=== PATIENT | male | born 1985 | race Caucasian/White ===

== ENCOUNTER 2020-09-16 09:39 | Outpatient (CLI) | payer OTHER, SELFPAY ==
--- NOTE | 2020-09-16 10:04 | EST_ITS ---
Patient Info Name: Parish Matthews Age: 35 years : 1985 Gender: Male Ht: 66 in Wt: 203 lbs BSA: 2.10 m2 HR: 96 bpm BP: 132 / 89 mmHg Heart Rhythm: Sinus Rhythm Exam Date: 09/16/2020 10:24 AM Exam Location: [facility] Patient Status: Outpatient Admit Date: 09/16/2020 Staff Ordering Physician: Mari De Leon Snack Bar Cook: Yumiko Nowak RDCS Attending Provider: Mari De Leon Exercise Technologist: Yessica North CT Exercise Physician: Manuel Overton DO Exam Type: CA stress echo Study Info Indications R60.0 - Localized edema Treadmill exercise stress echocardiogram is performed. Summary 1. 1. Negative Marcello exercise stress test for ischemic ST changes by ECG criteria. 2. 2. Good functional capacity, achieving 12 METs of workload. 3. 3. Appropriate HR response to exercise. 4. 4. Appropriate HR recovery at 1 minute post exercise. 5. 5. Negative stress echocardiogram for ischemia by wall motion analysis. 6. 6. Patient informed of the above results. Stress Echo Findings Left Ventricle Appropriate increase in LV endocardial thickening with systole. Appropriate augmentation of contractility with systole. No wall motion abnormality. Left Ventricle Normal LV systolic function, no wall motion abnormality. Protocol: Marcello Stress ECG Details Stage: REST Duration (min): 1 min : 1 sec Speed (mph): 0.0 Grade (%): 0 HR (bpm): 89 SBP (mmHg): 132 DBP (mmHg): 89 METS: --- Stage: REST Duration (min): 17 min : 54 sec Speed (mph): 0.0 Grade (%): 0 HR (bpm): 93 SBP (mmHg): 132 DBP (mmHg): 89 METS: --- Stage: STAGE 1 Duration (min): 1 min : 0 sec Speed (mph): 1.7 Grade (%): 10 HR (bpm): 121 SBP (mmHg): 132 DBP (mmHg): 89 METS: --- Stage: STAGE 1 Duration (min): 2 min : 0 sec Speed (mph): 1.7 Grade (%): 10 HR (bpm): 123 SBP (mmHg): 132 DBP (mmHg): 89 METS: --- Stage: STAGE 1 Duration (min): 3 min : 0 sec Speed (mph): 1.7 Grade (%): 10 HR (bpm): 128 SBP (mmHg): 134 DBP (mmHg): 91 METS: --- Stage: STAGE 2 Duration (min): 1 min : 0 sec Speed (mph): 2.5 Grade (%): 12 HR (bpm): 133 SBP (mmHg): 134 DBP (mmHg): 91 METS: --- Stage: STAGE 2 Duration (min): 2 min : 0 sec Speed (mph): 2.5 Grade (%): 12 HR (bpm): 140 SBP (mmHg): 150 DBP (mmHg): 76 METS: --- Stage: STAGE 2 Duration (min): 3 min : 0 sec Speed (mph): 2.5 Grade (%): 12 HR (bpm): 141 SBP (mmHg): 150 DBP (mmHg): 76 METS: --- Stage: STAGE 3 Duration (min): 1 min : 0 sec Speed (mph): 3.4 Grade (%): 14 HR (bpm): 148 SBP (mmHg): 186 DBP (mmHg): 73 METS: --- Stage: STAGE 3 Duration (min): 2 min : 0 sec Speed (mph): 3.4 Grade (%): 14 HR (bpm): 155 SBP (mmHg): 186 DBP (mmHg): 73 METS: --- Stage: STAGE 3 Duration (min): 3 min : 0 sec Speed (mp
[2020-09-16 10:29] LABS: Alanine Aminotransferase 45 U/L (4-50); Albumin Level 4.8 g/dL (3.5-5.1); Alkaline Phosphatase 75 U/L (38-126); Anion Gap 7 mmol/L (8-16); Aspartate Amino Transferase 37 U/L (17-59); Bilirubin,Total 0.6 mg/dL (0.2-1.3); Blood Urea Nitrogen 16 mg/dL (9-20); Calcium 8.9 mg/dL (8.4-10.2); Carbon Dioxide 29 mmol/L (22-30); Chloride 102 mmol/L (98-107); Cholesterol 203 mg/dL (0-200); Estimated Glomerular Filt Rate > 60; Glucose 128 mg/dL (75-110); HDL Direct 35 mg/dL; Potassium 4.2 mmol/L (3.4-5.0); Sodium 138 mmol/L (137-145); Triglycerides 110 mg/dL (<150)
[2020-09-16 10:36] LABS: Hemoglobin A1C 5.3 % (<5.7)
[2020-09-16 10:39] LABS: LDL Cholesterol Direct 144 mg/dL
[2020-09-20 07:07] LABS: Testosterone Free 50.5 pg/mL (35.0-155.0); Testosterone Total 312 ng/dL (250-1100)
== END 2020-09-16 09:40 | disposition home or self-care (01) ==
PROVIDERS: PCP Internal Medicine; Visit Provider Nurse Practitioner
DX: R60.0 Localized edema (principal); Z13.6 Encounter for screening for cardiovascular disorders; Z13.1 Encounter for screening for diabetes mellitus; Z13.220 Encounter for screening for lipoid disorders; G47.00 Insomnia, unspecified; N52.9 Male erectile dysfunction, unspecified
CPT/HCPCS: 36415; 80053; 80061; 83036; 84402; 84403; 84443; 93351

== ENCOUNTER 2021-06-01 22:40 | Emergency (ER) | payer BC, SELFPAY ==
[2021-06-01 23:18] VITALS: BP 151/102; PULSE 95; RESP 16; TEMP 36.9; O2SAT 97
== END 2021-06-02 03:30 | disposition left against medical advice (07) ==
PROVIDERS: PCP Internal Medicine
DX: Z53.21 Procedure and treatment not carried out due to patient leaving prior to being seen by health care provider (principal)
CPT/HCPCS: 99199

== ENCOUNTER 2021-11-04 15:08 | Outpatient (CLI) | payer BC, SELFPAY ==
--- NOTE | ~2021-11-04 | US_ITS ---
EXAMINATION: US venous doppler [facility] DATE: 11/04/2021 15:44 INDICATION: Localized lower limb edema. TECHNIQUE: Grayscale ultrasound images without and with compression and Doppler ultrasound images of the bilateral lower extremity veins were obtained. COMPARISON: None. FINDINGS: The visualized portions of right common femoral vein, profunda (deep) femoral vein, femoral vein, pop liteal vein, peroneal veins, posterior tibial veins, and greater saphenous vein outflow are patent. The visualized portions of left common femoral vein, profunda femoral vein, femoral vein, popliteal v ein, peroneal veins, posterior tibial veins, and greater saphenous vein outflow are patent. IMPRESSION: 1. No deep venous thrombosis. Reviewed, dictated and finalized at location A.
== END 2021-11-04 15:09 | disposition home or self-care (01) ==
PROVIDERS: PCP Internal Medicine; Visit Provider Internal Medicine
DX: R60.0 Localized edema (principal)
CPT/HCPCS: 93970

== ENCOUNTER 2022-03-16 18:54 | Emergency (ER) | payer BC, SELFPAY ==
--- NOTE | ~2022-03-16 | CT_ITS ---
EXAMINATION: CT cervical spine wo con DATE: 03/16/2022 20:46 INDICATION: head injury TECHNIQUE: Computed tomography (CT) of the cervical spine was performed without intravenous contrast. Automated exposure control and iterative reconstruction technique were employed. The dose-length pro duct was 469.41 mGy-cm. COMPARISON: None FINDINGS: Vertebral Body Alignment: Intact. Craniocervical and atlantoaxial alignment: Mild degenerative change. Alignment intact. Osseous structures/fracture: No evidence of a lytic or blastic process in the visualized spine. No e vidence of acute fracture. Cervical soft tissues: The paraspinal soft tissues planes are maintained. Bilateral mastoid effusions . Degenerative changes: Degenerative changes, without severe neural foraminal or central canal narrowin g. IMPRESSION: No acute fracture or traumatic malalignment in the cervical spine. Reviewed, dictated and finalized at location K.
--- NOTE | ~2022-03-16 | CT_ITS ---
EXAMINATION: CT brain & sinus wo con DATE: 03/16/2022 20:45 INDICATION: head injury . TECHNIQUE: Computed tomography (CT) of the brain and sinuses was performed without intravenous contra st. The mA was adjusted according to patient size. Iterative reconstruction technique was employed. T he dose-length product was 1891.67 mGy-cm. COMPARISON: None FINDINGS: No acute intracranial hemorrhage or extra-axial fluid collection. No hydrocephalus, mass, or herniation. No acute ischemic infarct. Unremarkable dural venous sinus attenuation. No acute osseous abnormality. SINUS: Multiple air-fluid levels in the bilateral mastoid air cells, the remaining aerated spaces are clear. Patent bilateral lower OMUs. Mild leftward deviation of the osseous septum, with a large leftward di rected spur. IMPRESSION: No acute intracranial process. Small bilateral mastoid effusions. Reviewed, dictated and finalized at location K.
[2022-03-16 19:06] VITALS: BP 164/93; PULSE 92; RESP 18; TEMP 36.3; O2SAT 97
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
[2022-03-16 22:17] VITALS: BP 150/87; PULSE 83; RESP 18; O2SAT 98
== END 2022-03-16 22:18 | disposition home or self-care (01) ==
PROVIDERS: Emergency Provider Nurse Practitioner Family; PCP Internal Medicine
DX: S06.0X0A Concussion without loss of consciousness, initial encounter (principal); Y04.2XXA Assault by strike against or bumped into by another person, initial encounter; F17.220 Nicotine dependence, chewing tobacco, uncomplicated
CPT/HCPCS: 70450; 70486; 72125; 99284